=== PATIENT | male | born 1940 | race African-American/Black ===

== ENCOUNTER 2019-02-14 11:49 | Emergency (ER) | payer OTHER, BC ==
[~2019-02-14] VITALS: Ht 172.7 cm; Wt 68.5 kg
[~2019-02-14 11:49] MED LIST: FELODIPINE10 MG PO; FOLIC ACID1 MG PO; HYDRALAZINE HYD50 MG PO; LEVAQUIN750 MG PO; METHOTREXATE2.5 M2 PO; METOPROLOL TART25 M1 PO; MEVACOR20 MG PO; MULTAQ400 MG PO; PREDNISONE2.5 MG PO; XARELTO10 M1 PO; ZESTRIL20 MG PO; ZESTRIL5 MG PO
[2019-02-14 11:55] VITALS: Ht 172.7 cm; Wt 68.5 kg
[2019-02-14 13:45] VITALS: BP 145/75
== END 2019-02-14 13:46 | disposition home or self-care (01) ==
LOC: ED 11:49
DX: S20.212A Contusion of left front wall of thorax, initial encounter (principal); S60.222A Contusion of left hand, initial encounter; S09.90XA Unspecified injury of head, initial encounter; I10 Essential (primary) hypertension; I49.9 Cardiac arrhythmia, unspecified; I48.91 Unspecified atrial fibrillation; M06.9 Rheumatoid arthritis, unspecified; Z88.0 Allergy status to penicillin; W18.30XA Fall on same level, unspecified, initial encounter; Y93.89 Activity, other specified; Y92.89 Other specified places as the place of occurrence of the external cause; Y99.8 Other external cause status